=== PATIENT | male | born 1990 | race Caucasian/White ===

== ENCOUNTER 2021-03-05 23:12 | Observation (INO) | payer OTHER, SELFPAY ==
--- NOTE | ~2021-03-05 | CT_ITS ---
EXAMINATION: CT abdomen pelvis w con INDICATION: Vomiting and abdominal pain TECHNIQUE: Computed tomographic images of the abdomen and pelvis were obtained after the administrati on of 100 cc of Omnipaque 350 intravenous contrast. The dose-length product (DLP) was 655.22 mGy-cm. Automated exposure control and iterative reconstruction technique were employed. COMPARISON: None available FINDINGS: Minimal dependent atelectasis is present in the lung bases. The heart size is normal. There is mild bilateral gynecomastia. The liver, spleen, pancreas, gallbladder, and adrenal glands are nor mal. Hypoattenuating lesions in the kidneys, measuring up to 6 mm on the left, are too small to saul cterize but likely represent cysts. No pathologically enlarged abdominal or pelvic lymph nodes are id entified. There is no free intraperitoneal gas or evidence of bowel obstruction. The appendix is norm al. There is a greater than normal number of fluid-filled, nondistended small bowel loops. There is a lso liquid stool throughout much of the colon. IMPRESSION: 1. Findings suggestive of enterocolitis. Reviewed, dictated and finalized at location A. E ATTENDANT
[2021-03-05 23:15] VITALS: BP 105/56; PULSE 90; RESP 20; TEMP 36.2; O2SAT 100
[2021-03-05 23:19] VITALS: PULSE 90; RESP 20; TEMP 36.2; O2SAT 100
--- NOTE | 2021-03-05 23:52 | ED.ABDPAIN ---
HPI - Abdominal Pain General Chief Complaint: Abdominal Pain Stated Complaint: weakness Time Seen by Provider: 03/05/21 23:17 Source: patient and RN notes reviewed Mode of arrival: ambulatory Limitations: no limitations History of Present Illness HPI narrative: This is a 30 year old male who presents for evaluation weakness and diarrhea. He developed watery, nonbloody diarrhea 4 hours ago, and he reports having up to 40 episodes. He also reports intermittent abdominal cramping with nausea and vomiting. He tried taking imodium but he started vomiting. He is also complaining of weakness and dizziness. He reports having contact with family that had GI symptoms last week but no one is having symptoms tonight. He ate at [employer] with his and he states she is not sick. He also reports headache and sore throat, but he denies cough, shortness of breath or URI. He is fully vaccinated for covid. Related Data Allergies Allergy/AdvReac Type Severity Reaction Status Date / Time No Known Allergies Allergy Verified 03/06/21 01:38 Review of Systems Review of Systems: All systems reviewed & are unremarkable except as noted in HPI and below PMFSH Past Medical History Medical History (Updated 03/06/21 @ 05:31 by Priscilla Rodgers MD) Patient denies medical problems Surgical History Surgical History (Updated 03/05/21 @ 23:55 by Priscilla Rodgers MD) No pertinent past surgical history Social History Social History (Updated 03/05/21 @ 23:55 by Priscilla Rodgers MD) Smoking status: Never smoker Exam Const: General: no acute distress, alert and ill appearing Orientation/consciousness: patient oriented x3 HENMT: Mouth: Yes moist mucous membranes Eyes: EOM: EOMs intact bilaterally Resp: Effort & Inspection: normal respiratory effort and no retractions Auscultation: clear to auscultation bilaterally Cardio: Rate: regular rate Rhythm: regular rhythm Heart sounds: no murmurs GI: GI Palp: Yes Soft to palpation, No Tenderness to palpation present (GI) and No Guarding due to palpation present (GI) Auscultation: normal bowel sounds Skin: General skin exam: normal color Rashes: no rashes Neuro: General: patient oriented x3, moves all extremities and CN's II-XI intact bilaterally Psych: Mental Status: mental status grossly normal Affect: normal affect Course Reevaluation(s) Reevaluation #1: PAtient has been able to tolerate PO. I discussed he was dehydrated and has gastroenteritis. He is not have fever or blood stools so no antibiotics at this time. He is no longer orthostatic. Able to walk around without dizziness. Date: 03/06/21 Time: 05:28 Reevaluation #2: Nursing staff reports she went to discharge patient and started vomiting water that he drank . I discussed with patient we will try different medication and he will be observed in hospital for intractable nausea and vomiting. I discussed case with Dr. Perera who accepts patient. Date: 03/06/21 Time: 05:50 Vital Signs Vital signs: Vital Signs Temperature 97.2 F L 03/05/21 23:15 Pulse Rate 90 03/05/21 23:15 Respiratory Rate 20 03/05/21 23:15 Blood Pressure 105/56 L 03/05/21 23:15 Pulse Oximetry 100 03/05/21 23:15 Temperature 97.2 F L 03/05/21 23:19 Pulse Rate 64 03/06/21 06:00 Respiratory Rate 16 03/06/21 06:00 Blood Pressure 96/60 L 03/06/21 06:00 Pulse Oximetry 100 03/06/21 06:00 MDM - Abdominal Pain Lab Data Attestation: I reviewed the patient's lab results. Result diagrams: 03/05/21 23:48 03/05/21 23:48 Labs: Lab Results 03/05/21 03/05/21 03/06/21 Range/Units 23:48 23:48 00:02 WBC 11.5 H (4.5-10.0) K/mm3 RBC 5.83 (4.6-6.20) M/mm3 Hgb 17.1 (14.0-18.0) g/dL Hct 52.3 H (42.0-52.0) % MCV 89.7 (80-100) fl MCH 29.3 (26-34) pg MCHC 32.7 (32-36) g/dl RDW 12.3 (11.5-14.5) % Plt Count 253 (150-375) k/mm3 MPV 11.0 H (7.4-
[2021-03-05 23:55] VITALS: BP 125/81; PULSE 81
[2021-03-05 23:55] LABS: Basophils Percent Auto 0.3 % (0.2-1.2); Eosinophils Absolute Auto 0.2 K/mm3 (0-0.3); Eosinophils Percent Auto 1.6 % (0-4.4); Hematocrit 52.3 % (42.0-52.0); Hemoglobin 17.1 g/dL (14.0-18.0); Immature Granulocyte Absolute 0.13 K/mm3 (0.00-0.031); Immature Granulocyte Percent A 1.1 % (0-0.5); Lymphocytes Absolute Auto 1.14 K/mm3 (0.9-3.2); Lymphocytes Percent Auto 9.9 % (18.3-44.2); Mean Corpuscular HGB Conc 32.7 g/dl (32-36); Mean Corpuscular Hemoglobin 29.3 pg (26-34); Mean Corpuscular Volume 89.7 fl (80-100); Monocytes Absolute Auto 0.4 K/mm3 (0.1-0.6); Monocytes Percent Auto 3.7 % (2.6-8.5); Neutrophils Absolute Auto 9.6 K/mm3 (1.3-6.7); Neutrophils Percent Auto 83.4 % (45.5-73.1); Platelet Count Result 253 k/mm3 (150-375); Red Blood Count 5.83 M/mm3 (4.6-6.20); Red Cell Distribution Width 12.3 % (11.5-14.5); White Blood Count 11.5 K/mm3 (4.5-10.0)
[2021-03-05 23:57] VITALS: BP 111/99; BP 125/81; PULSE 104; O2SAT 100
[2021-03-05] MEDS: LACTATED RINGERS 1,000 ML 999 ML IV CONT ×2 (23:57)
[2021-03-05] MEDS: ONDANSETRON INJ 4 MG/2 ML VIAL IV PUSH (23:57)
[2021-03-06] VITALS (36 sets, daily range): BP systolic 64–116; BP diastolic 34–99; PULSE 64–110; RESP 16–99; TEMP 36.6–38.3; O2SAT 93–100; BMI 19.5
[2021-03-06 00:35] LABS: Alanine Aminotransferase 34 U/L (4-50); Albumin Level 5.1 g/dL (3.5-5.1); Alkaline Phosphatase 83 U/L (38-126); Anion Gap 14 mmol/L (8-16); Aspartate Amino Transferase 35 U/L (17-59); Bilirubin,Total 0.9 mg/dL (0.2-1.3); Blood Urea Nitrogen 18 mg/dL (9-20); Calcium 9.7 mg/dL (8.4-10.2); Carbon Dioxide 24 mmol/L (22-30); Chloride 102 mmol/L (98-107); Estimated CRCL calculation 85 ml/min; Estimated Glomerular Filt Rate > 60; Glucose 148 mg/dL (65-110); Lipase 48 U/L (23-300); Potassium 4.2 mmol/L (3.4-5.0); Sodium 140 mmol/L (137-145)
[2021-03-06 00:39] LABS: Add Urine Microscopic? YES; Appearance Urine Cloudy (Clear); Bilirubin Urine Negative (Negative); Blood Urine Negative (Negative); Color Urine Amber (Yellow); Glucose Urine UA Negative (Negative); Ketones Urine Trace mg/dL (Negative); Leukocyte Esterase Ur Negative LEU/UL (Negative); Mucus Urine Heavy /lpf; Nitrate Urine Negative (Negative); Protein Urine 2+ mg/dL (Negative)
[2021-03-06 00:40] LABS: Specific Grav Ur 1.033 (1.001-1.035)
[2021-03-06] MEDS: LACTATED RINGERS 1,000 ML 999 ML IV CONT ×2 (01:38→03:26)
[2021-03-06] MEDS: ONDANSETRON INJ 4 MG/2 ML VIAL IV PUSH (03:27)
--- NOTE | 2021-03-06 05:48 | PC.NURSE ---
went to discharge pt. Pt threw up during discharge instructions, updated doctor.
[2021-03-06] MEDS: METOCLOPRAMIDE HCL INJ 10 MG/2 ML VIAL IV PUSH (06:24)
--- NOTE | 2021-03-06 06:44 | PM.IMHP ---
H&P: HPI History of Present Illness Date/Time: Date of Service 03/06/21 06:44 30M with a past medical history of ADHD who presents to the ED with vomiting and diarrhea. Vomiting and diarrhea started around 3 hours before presenting to the ED. Earlier in the day patient went to [employer] for breakfast and again for dinner. Diarrhea described watery and constant. Tried to take imodium but the vomiting was so constant. Patient denies recent travel other than coming from [place], [place] about a month ago. Patient only drinks filtered or bottle water. Denies contact with exotic animals. 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 With the diarrhea, there is associated abdominal cramping, dizziness and generalized weakness. Denies bloody diarrhea, cough, congestion, rhinorrhea, vision change, blurred vision, muscle cramps. Has had diarrhea in the past but never this copious. Chief Complaint: vomiting and diarrhea Review of Systems Constitutional: Constitutional: Reports headache(s) Eyes: Eyes: Denies blurry vision and Denies change in vision ENT: Denies nasal congestion, Denies nasal discharge and Denies post nasal drip Respiratory: Respiratory: Denies chest congestion and Denies cough Gastrointestinal: Gastrointestinal: Denies melena, Denies hematochezia, Reports change in bowel habits, Reports change in stool character, Denies constipation, Reports GI cramping, Reports diarrhea, Reports loose stools and Reports vomiting Musculoskeletal: Musculoskeletal: Denies muscle cramps and Denies muscle weakness Endocrine: Endocrine: Reports fatigue Allergic/Immunologic: Allergic/Immunologic: Reports seasonal rhinorrhea [facility] Past Medical History Medical History (Updated 03/06/21 @ 17:27 by Florence York MD) ADHD Patient denies medical problems Surgical History Surgical History No pertinent past surgical history Family History Family History (Updated 03/06/21 @ 16:38 by Florence York MD) Mother Prediabetes Father Hypertension Social History Social History (Updated 03/06/21 @ 17:20 by Florence York MD) Smoking status: Never smoker Second hand tobacco smoke exposure: No Alcohol intake: current Alcohol use details: Drinks ETOH socially Substance use: never Substance use type: does not use Additional living arrangements comments: Currently visiting [facility] and staying in there home in [place]. 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 Gender identity (if verbalized by the patient): Male Spiritual care concerns: No Meds Home Medications and Allergies Home Medications Medication Instructions Recorded Confirmed Type loperamide [Imodium A-D] 2 mg PO Q4H PRN #10 cap 03/06/21 Rx ondansetron 4 mg PO Q6H PRN #10 tablet 03/06/21 Rx Allergies Allergy/AdvReac Type Severity Reaction Status Date / Time No Known Allergies Allergy Verified 03/06/21 17:21 Vital Signs Vital Signs - 24 hr 03/05/21 23:15 03/05/21 23:19 03/05/21 23:55 Temperature 97.2 F L 97.2 F L Pulse Rate 90 90 81 Respiratory Rate 20 20 Blood Pressure 105/56 L 125/81 Pulse Oximetry 100 100 03/05/21 23:57 03/06/21 00:07 03/06/21 00:08 Temperature Pulse Rate 104 H 96 Respiratory Rate Blood Pressure 125/81 111/99 H Pulse Oximetry 100 97 100 03/06/21 00:11 03/06/21 00:16 03/06/21 00:32 Temperature Pulse Rate Respiratory Rate Blood Pressure Pulse Oximetry 100 96 95 03/06/21 00:46 03/06/21 00:47 03/06/21 01:00 Temperature Pulse Rate Respiratory Rate Blood Pressure 107/88 Pulse Oximetry 97 99 93 03/06/21 01:15 03/06/21 01:16 03/06/21 01:31 Temperature Pulse Rate 74 Respiratory Rate 16 Blood Pressure 103/66 Pulse Oximetry 100 97 99 03/06/21 01:32 03/06/21 01:46 03/06/21 01:49 Temperature Pulse Rate Respiratory R
--- NOTE | 2021-03-06 07:30 | ADMGEN ---
This patient, Zak Carey, was admitted to [facility] Surg Room 327-01. Patient/family oriented to hospital policies and general routines including ID bracelet, bed and alarms, visiting hours, pain management, procedures, bathroom and other care routines, personal items, smoking policy, room service/diet, and visiting hours. Information on how to activate the Rapid Response Team has been discussed. Patient/Family are encouraged to report perceived risks to care and to ask questions if they do not understand what they are told or what they should do.
[2021-03-06] MEDS: SODIUM CHLORIDE 0.9% IV 1,000 ML 125 ML IV CONT ×2 (12:24→23:32)
[2021-03-06] MEDS: PANTOPRAZOLE SODIUM IV 40 MG VIAL IV PUSH (13:16)
[2021-03-07 06:00] VITALS: BP 88/45; PULSE 56; RESP 18; TEMP 36.3; O2SAT 98
[2021-03-07 06:17] LABS: Basophils Percent Auto 0.4 % (0.2-1.2); Eosinophils Absolute Auto 0.1 K/mm3 (0-0.3); Eosinophils Percent Auto 1.9 % (0-4.4); Hemoglobin 12.9 g/dL (14.0-18.0); Immature Granulocyte Absolute 0.02 K/mm3 (0.00-0.031); Immature Granulocyte Percent A 0.8 % (0-0.5); Lymphocytes Percent Auto 37.7 % (18.3-44.2); Mean Corpuscular HGB Conc 33.9 g/dl (32-36); Mean Corpuscular Hemoglobin 30.2 pg (26-34); Mean Platelet Volume 10.9 fl (7.4-10.4); Monocytes Absolute Auto 0.3 K/mm3 (0.1-0.6); Monocytes Percent Auto 11.7 % (2.6-8.5); Neutrophils Absolute Auto 1.3 K/mm3 (1.3-6.7); Neutrophils Percent Auto 47.5 % (45.5-73.1); Platelet Count Result 123 k/mm3 (150-375); Red Blood Count 4.27 M/mm3 (4.6-6.20); Red Cell Distribution Width 12.1 % (11.5-14.5); White Blood Count 2.7 K/mm3 (4.5-10.0)
[2021-03-07] MEDS: SODIUM CHLORIDE 0.9% IV 1,000 ML 125 ML IV CONT (06:32)
[2021-03-07 06:34] LABS: Alanine Aminotransferase 22 U/L (4-50); Albumin Level 2.9 g/dL (3.5-5.1); Alkaline Phosphatase 41 U/L (38-126); Anion Gap 3 mmol/L (8-16); Aspartate Amino Transferase 23 U/L (17-59); Bilirubin,Total 0.7 mg/dL (0.2-1.3); Blood Urea Nitrogen 8 mg/dL (9-20); Calcium 7.5 mg/dL (8.4-10.2); Carbon Dioxide 27 mmol/L (22-30); Chloride 102 mmol/L (98-107); Estimated CRCL calculation 119 ml/min; Estimated Glomerular Filt Rate > 60; Glucose 100 mg/dL (65-110); Potassium 3.3 mmol/L (3.4-5.0); Sodium 132 mmol/L (137-145)
--- NOTE | 2021-03-07 07:40 | PM.IMPN ---
Progress Note: A&P Assessment and Plan (1) Acute dehydration: Code(s): E86.0 - Dehydration Status: Acute Assessment and Plan: Diarrhea is persistent but the gastroenteritis is resolving with more formed stools. Dehydration is resolved. Electrolytes are within range. Stool E. coli shiga toxin, Salmonella, shigella, c. diff and campylobacter all pending. Patient has remained afebrile for 24 hours and blood cultures with no growth. Tolerating a regular diet for lunch. -Discharge to home (2) Pancytopenia: Code(s): D61.818 - Other pancytopenia Status: Acute Assessment and Plan: No signs of bleeding. No hx of ETOH or chemical exposure. LFTs normal. Discussed with patient that he will need additional workup and likely a hematology referral from his PCP, Dr. Zane Flores in [place], [place] at [facility]. (3) ADHD: Code(s): F90.9 - Attention-deficit hyperactivity disorder, unspecified type Status: Inactive Assessment and Plan: Not currently taking medication for this. (4) Polycythemia: Code(s): D75.1 - Secondary polycythemia Status: Acute Assessment and Plan: Likely hemoconcentration 2/2 to dehydration from GI illness. This resolved after hydration. Subjective Date/time seen: Date of Service 03/07/21 07:40 Patient says his diarrhea is improving as initially it was almost just water and very copious. He says his stools have started to be come more solid and formed. He says he feels much better. Denies abdominal pain. Patient denies constant fatigue or easy bruising or bleeding. Denies heavy ETOH use. Review of Systems Constitutional: Constitutional: Denies fatigue, Denies fever(s), Denies malaise and Denies weakness Gastrointestinal: Gastrointestinal: Denies abdominal pain, Reports change in stool character, Denies GI cramping, Reports diarrhea and Denies vomiting Hematologic/Lymphatic: Hematologic/Lymphatic: Reports no additional hematologic/lymphatic complaints, Reports easy bleeding and Reports easy bruising Exam Narrative: GENERAL: NAD, cooperative HEENT: Normocephalic, atraumatic, anicteric, wearing glasses NECK: Supple CV: Normal S1, S2, RRR, No MRG RESP: CTAB, Normal work of breathing. Abdomen: Soft, non-tender, non-distended, hyperactive BS EXTREMITIES: Warm and well perfused, no clubbing, cyanosis, or edema. SKIN: warm, dry and intact. NEURO: CN 2- 12 intact. Objective Data Vital Signs Vital Signs: Vital Signs - 24 hr 03/06/21 09:56 03/06/21 15:01 03/06/21 15:35 Temperature 99.6 F 100.9 F H 100.9 F H Pulse Rate 88 110 H 110 H Respiratory Rate 20 20 20 Blood Pressure 96/47 L 91/47 L 91/47 L Pulse Oximetry 97 96 96 03/06/21 22:00 03/06/21 22:58 03/07/21 06:00 Temperature 98 F 97.4 F L Pulse Rate 74 56 L Respiratory Rate 20 18 Blood Pressure 98/50 L 88/45 L Pulse Oximetry 99 96 98 Intake/Output Intake/Output: Intake & Output 03/04/21 03/05/21 03/06/21 03/07/21 23:59 23:59 23:59 23:59 Intake Total 5780 1100 Balance 5780 1100 Meds/Results Medications: Active Medications Generic Name Dose Route Start Last Admin Trade Name Freq PRN Reason Stop Dose Admin Sodium Chloride 1,000 mls @ 125 mls/hr 03/06/21 05:55 03/07/21 06:32 Normal Saline Iv IV CONT 125 mls/hr .Q8H TEODORO Administration Acetaminophen 1,000 mg in 100 mls @ 400 mls/hr 03/07/21 06:06 03/07/21 06:47 Ofirmev 1,000 Mg Ivpb IVPB 03/08/21 06:05 Infused Q6H PRN Infusion Pain Rated 1-3 or fever Calcium Gluconate 1,000 mg in 50 mls @ 100 mls/hr 03/07/21 07:38 Calcium Gluc 1,000 Mg/Ns 50 Ml IVPB 03/07/21 08:07 ONCE ONE Pantoprazole Sodium 40 mg 03/06/21 09:00 03/06/21 13:16 Pantoprazole Sodium Iv 40 Mg Vial IV PUSH 40 mg QAM TEODORO Administration Promethazine HCl 12.5 mg 03/06/21 05:52 Promethazine Hcl 25 Mg/Ml Ampul IV PUSH Q6H PRN Nausea Radiology
[2021-03-07] MEDS: POTASSIUM CHLORIDE 20 MEQ TABLET 40 MEQ PO (08:33)
[2021-03-07] MEDS: CALCIUM GLUC 1,000 MG/NS 50 ML 1,000 MG/50 ML BAG 100 MG IVPB (08:33)
[2021-03-07] MEDS: PANTOPRAZOLE SODIUM IV 40 MG VIAL IV PUSH (08:34)
[2021-03-07 14:00] VITALS: BP 104/53; PULSE 69; RESP 16; TEMP 36.1; O2SAT 99
--- NOTE | 2021-03-07 15:33 | PM.DS ---
DS: Admitting Diagnosis Discharge Date 03/07/2021 Admitting Diagnosis Dehydration DS: Discharge Diagnosis Discharge Diagnosis (1) Gastroenteritis: Code(s): K52.9 - Noninfective gastroenteritis and colitis, unspecified Status: Acute Assessment and Plan: Patient presented with nausea, vomiting and copious diarrhea causing lightheadedness and weakness with the diarrhe having started 3 hours prior to presentation to the ED. Given the sudden onset it was likely viral vs toxin induced from something he ate at [employer]. CT noted enterocolitis. With hydration and electrolyte replacement patient has improved and has been afebrile for the past 24 hours with no growth on blood cultures. Stool studies pending. Dicscharge to home. (2) Acute dehydration: Code(s): E86.0 - Dehydration Status: Acute Assessment and Plan: Diarrhea is persistent but the gastroenteritis is resolving with more formed stools. Dehydration is resolved. Electrolytes are within range. Stool E. coli shiga toxin, Salmonella, shigella, c. diff and campylobacter all pending. Patient has remained afebrile for 24 hours and blood cultures with no growth. Tolerating a regular diet for lunch. -Discharge to home (3) Pancytopenia: Code(s): D61.818 - Other pancytopenia Status: Acute Assessment and Plan: No signs of bleeding. No hx of ETOH or chemical exposure. LFTs normal. Patient asymptomatic. Discussed with patient that he will need additional workup and likely a hematology referral from his PCP, Dr. Zane Flores in [place], [place] at [facility]. -Follow up with primary care physician (4) Polycythemia: Code(s): D75.1 - Secondary polycythemia Status: Acute Assessment and Plan: Likely hemoconcentration 2/2 to dehydration from GI illness. This resolved after hydration. (5) ADHD: Code(s): F90.9 - Attention-deficit hyperactivity disorder, unspecified type Status: Inactive Assessment and Plan: Not currently taking medication for this. DS: Summary Hospital Course Hospital Course: Patient presented to the ED with lightheadedness and weakness from having > 40 watery bowel movements in the 3 hours prior to presentation to the ED. Patient was slighty hypotensive in the ED. There was no significant electrolyte disturbance on admission. CT A/P noted enterocolitis. Patient was febrile to 100.9, so dischage to home was held. Patient remained afebrile for 24 hours and tolerated a regular diet. Stools began to be more formed. Initially CBC showed hemoconentration as polycythemia but with hydration it showed pancytopenia. Patient was asymptomatic, so patient was recommended to see his PCP fo a referral to a Communications Media Professor. Time Spent with Patient Time attestation: Total time spent providing and/or coordinating discharge services: 30 Exam Narrative: GENERAL: NAD, cooperative HEENT: Normocephalic, atraumatic, anicteric, wearing glasses NECK: Supple CV: Normal S1, S2, RRR, No MRG RESP: CTAB, Normal work of breathing. Abdomen: Soft, non-tender, non-distended, hyperactive BS EXTREMITIES: Warm and well perfused, no clubbing, cyanosis, or edema. SKIN: warm, dry and intact. NEURO: CN 2- 12 intact. DS: Data Data Completed and Pending Labs on day of discharge: Labs from last 24 hours 03/07/21 03/07/21 03/07/21 05:54 05:54 05:42 WBC 2.7 L RBC 4.27 L Hgb 12.9 L D Hct 38.0 L MCV 89.0 MCH 30.2 MCHC 33.9 RDW 12.1 Plt Count 123 L D MPV 10.9 H Immature Gran % (Auto) 0.8 H Neut % (Auto) 47.5 Lymph % (Auto) 37.7 Barnes % (Auto) 11.7 H Eos % (Auto) 1.9 Baso % (Auto) 0.4 Lymph # (Auto) 1.00 Barnes # (Auto) 0.3 Eos # (Auto) 0.1 Baso # (Auto) 0.0 Abs Immat Gran (auto) 0.02 Absolute Neuts (auto) 1.3 Absolute Nucleated RBC 0.0 Nucleated RBC % 0.0 Sodium 132 L Potassium 3.3 L Chloride
[2021-03-10 17:01] LABS: Rotavirus Stool Not Detected
[2021-03-11 13:51] LABS: Norovirus RNA PCR, Stool DETECTED
== END 2021-03-07 18:24 | disposition home or self-care (01) ==
LOC: ANHED 03-06 05:51 → ANH3MEDSUR 03-06 14:38
PROVIDERS: Admitting Provider Internal Medicine; Emergency Provider General Practice; Visit Provider Family Medicine
DX: K52.9 Noninfective gastroenteritis and colitis, unspecified (principal); E86.0 Dehydration; D75.1 Secondary polycythemia; D61.818 Other pancytopenia; F90.9 Attention-deficit hyperactivity disorder, unspecified type
CPT/HCPCS: 36415; 74177; 80053; 81001; 83690; 85025; 87040; 87045; 87324; 87425; 87427; 87798; 96361; 96365; 96374; 96375; 96376; 99285; A9270; C9113; G0378; J0131; J0610; J2405; J2765; J7030; J7120; Q9967